=== PATIENT | male | born 1975 | race Caucasian/White ===

== ENCOUNTER 2016-07-27 11:51 | Inpatient (IN) ==
[2016-07-27] MEDS ORDERED: Nitroglycerin 0.4 MG TAB.SUBL SL ONE (12:16)
[2016-07-27] MEDS ORDERED: Aspirin 81 MG TAB.CHEW PO ONE (12:16)
--- NOTE | 2016-07-27 12:28 | Emergency Department Note ---
Disposition Clinical Impression: NSTEMI (non-ST elevated myocardial infarction) Disposition: Admitted As Inpatient Condition: Fair Referrals: NO,PCP [Primary Care Provider] - Forms: ED Satisfaction Letter Time of Disposition: 13:36 Chest Pain HPI - General Chief Complaint: ED Chest Pain Stated Complaint: CP, SOB Time Seen by Provider: 07/27/16 12:06 Source: patient Limitations: no limitations Vital Signs Reviewed: Yes Nursing Notes Reviewed: Yes - History of Present Illness HPI Narrative: Patient is a 40-year-old male who presents to [facility] ED with a chief complaint of chest pain and shortness of breath. Patient states he has had a couple of episodes at this point. States he had one 2 days ago and one today that started approximately 1 hour prior to arrival. States it feels like a pressure and radiates into his left arm. Denies any nausea, vomiting, fever or chills. Patient did have an episode of nausea with vomiting during the first episode a few days ago. No recent cough or cold. Patient has a significant family history that his dad had a heart attack at an early age. Past medical history significant for type 2 diabetes, hyper lipidemia, proteinuria for which he takes a blood pressure medication. Pt complaint: chest pain Onset (ago): hour(s) Duration: intermittent Onset: during rest Pain Location: substernal Severity: moderate Severity scale (1-10): 4 Quality: dull Pain Radiation: LUE Improves with: nothing Worsens with: nothing Associated symptoms: Denies: nausea, vomiting, diaphoresis, dyspnea, fever, cough Treatments prior to arrival chest pain: none - Related Data Allergies Allergy/AdvReac Type Severity Reaction Status Date / Time niacin AdvReac Flushing Verified 07/27/16 12:00 All systems ED: reviewed and negative except as stated. Chest Pain PMH - Past Medical History Medical history: Reports: diabetes, hyperlipidemia, hypertension Psychiatric history: Reports: no psych history - Social History Smoking Status: Never smoker Alcohol use: Reports: none Drug use: Reports: none Physical Exam - General Limitations: no limitations General appearance: alert, obese - Head Head exam: atraumatic, normocephalic, normal inspection - Eye Eye exam: Present: normal appearance, PERRL, EOMI - ENT ENT exam: normal exam, normal oropharynx, mucous membranes moist - Neck Neck exam: Present: normal inspection, full ROM, trachea midline - Chest Chest inspection: Present: normal inspection, symmetric chest wall rise - Respiratory Respiratory exam: Present: normal lung sounds bilaterally - Cardiovascular Cardiovascular exam: Present: regular rate, normal rhythm, normal heart sounds - Abdominal Exam Abdominal exam: Present: soft, Non-Tender. Absent: tenderness, distention, guarding, rebound, rigidity - Extremities Exam Extremities exam: Present: normal inspection, full ROM. Absent: tenderness, pedal edema - Back Exam Back exam: Present: normal inspection, full ROM. Absent: tenderness - Neurological Exam Neurological exam: Present: alert, oriented X3 - Psychiatric Psychiatric exam: Present: normal affect, normal mood - Skin Skin exam: Present: warm Course Course Narrative: Patient seen and examined. Chest pain. Patient does have risk factors. Cardiopulmonary workup initiated. His last stress test was over 2 years ago. I do not feel patient is having a pulmonary embolism. He is able to PERC out. - Reevaluation(s) Reevaluation #1: Patient's troponin elevated at 0.41. All other labs/imaging appear unremarkable. We will admit for NSTEMI. Patient placed on a heparin drip. Patient did receive the aspirin and nitroglycerin already. He is unsure if the nitroglycerin helped at all. I spoke with hospitalist Dr. Stover who has accepted patient for admission. Time: 13:36 Vital Signs Temperature 97.1 F L 07/27/16 11:57 Pulse Rate 84 07/27/16 11:57 Respiratory Rate 18 07/27/16 11:57 Blood Pressure 151/99 07/27/16 11:57 O2 Sat by Pulse Oximetry 97 07/27/16 11:57 Temperature 97.1 F L 07/27/16 11:57 Pulse Rate 84 07/27/16 11:57 Respiratory Rate 18 07/27/16 11:57 Blood Pressure 151/99 07/27/16 11:57 O2 Sat by Pulse Oximetry 97 07/27/16 11:57 Oxygen Delivery Oxygen Delivery Room Air Chest Pain - Medical Records Medical records reviewed: Yes I reviewed the patient's medical records. - Lab Data Lab results reviewed: Yes I reviewed the patient's lab results. Result diagrams: 07/27/16 12:30 07/27/16 12:30 Lab Results 07/27/16 07/27/16 07/27/16 Range/Units 12:30 12:30 12:30 WBC 6.5 (4.3-11.1) K/mcL RBC 5.19 (4.19-5.50) M/mcL Hgb 14.6 (12.9-16.9) g/dL Hct 43.2 (37.5-50.1) % MCV 83.2 (83.0-100.0) fL MCH 28.1 (28.0-33.3) pg MCHC 33.8 (31.6-35.5) g/dL RDW 14.0 (11.5-14.5) % Plt Count 188 (140-400) K/mcL MPV 9.6 (9.4-12.4) fL Immature Gran % 0.5 (0-4) % Seg Neutrophils % 59.0 % Lymphocytes % 25.8 % Monocytes % 12.4 % Eosinophils % 2.0 % Basophils % 0.3 % Neutrophils # 3.9 (1.6-8.9) K/mcL Lymphocytes # 1.7 (0.6-4.6) K/mcL Monocytes # 0.8 (0.0-1.3) K/mcL Eosinophils # 0.1 (0.0-0.6) K/mcL Basophils # 0.0 (0.0-0.2) K/mcL PT (9.4-12.1) Seconds INR APTT (26.0-36.0) Seconds Sodium 138 (136-145) mEq/L Potassium 3.7 (3.5-4.5) mEq/L Chloride 108 (98-109) mEq/L Carbon Dioxide 22 (19-29) mEq/L BUN 14 (8-26) mg/dL Creatinine 0.77 (0.72-1.25) mg/dL Est GFR ( Amer) > 60 (> 60) Est GFR (Non-Af Amer) > 60 (> 60) BUN/Creatinine Ratio 18 (6-26) Glucose 104 H (70-99) mg/dL Calculated Osmolality 287 (280-300) Calcium 8.8 (8.6-10.8) mg/dL Troponin I 0.41 H* (0-0.03) ng/mL 07/27/16 Range/Units 12:30 WBC (4.3-11.1) K/mcL RBC (4.19-5.50) M/mcL Hgb (12.9-16.9) g/dL Hct (37.5-50.1) % MCV (83.0-100.0) fL MCH (28.0-33.3) pg MCHC (31.6-35.5) g/dL RDW (11.5-14.5) % Plt Count (140-400) K/mcL MPV (9.4-12.4) fL Immature Gran % (0-4) % Seg Neutrophils % % Lymphocytes % % Monocytes % % Eosinophils % % Basophils % % Neutrophils # (1.6-8.9) K/mcL Lymphocytes # (0.6-4.6) K/mcL Monocytes # (0.0-1.3) K/mcL Eosinophils # (0.0-0.6) K/mcL Basophils # (0.0-0.2) K/mcL PT 11.3 (9.4-12.1) Seconds INR 1.0 APTT 27.5 (26.0-36.0) Seconds Sodium (136-145) mEq/L Potassium (3.5-4.5) mEq/L Chloride (98-109) mEq/L Carbon Dioxide (19-29) mEq/L BUN (8-26) mg/dL Creatinine (0.72-1.25) mg/dL Est GFR ( Amer) (> 60) Est GFR (Non-Af Amer) (> 60) BUN/Creatinine Ratio (6-26) Glucose (70-99) mg/dL Calculated Osmolality (280-300) Calcium (8.6-10.8) mg/dL Troponin I (0-0.03) ng/mL - Radiology Data Radiology results reviewed: Yes I reviewed the patient's radiology results. - EKG Data EKG attestation: Yes I reviewed and interpreted this EKG. EKG results narrative: EKG done at 1156 shows normal sinus rhythm with a rate of [address] elevation or depression. Inverted T wave in lead 2. Heart Score - Score History: Moderately Suspicious EKG: Non Specific repolarisation Disturbance Age: Less than 45 Risk Factors: 1-2 risk factors Troponin: Greater than 3x normal limit HEART Score Total: 5
[2016-07-27 12:38] LABS: Basophils % 0.3 %; Eosinophils # 0.1 K/mcL (0.0-0.6); Hematocrit 43.2 % (37.5-50.1); Hemoglobin 14.6 g/dL (12.9-16.9); Immature Granulocytes % 0.5 % (0-4); Lymphocytes # 1.7 K/mcL (0.6-4.6); Lymphocytes % 25.8 %; Mean Corpuscular HGB Conc 33.8 g/dL (31.6-35.5); Mean Corpuscular Hemoglobin 28.1 pg (28.0-33.3); Mean Corpuscular Volume 83.2 fL (83.0-100.0); Mean Platelet Volume 9.6 fL (9.4-12.4); Monocytes # 0.8 K/mcL (0.0-1.3); Monocytes % 12.4 %; Neutrophils # 3.9 K/mcL (1.6-8.9); Platelet Count 188 K/mcL (140-400); Red Blood Count 5.19 M/mcL (4.19-5.50)
[2016-07-27 12:48] LABS: BUN/Creatinine Ratio 18 (6-26); Blood Urea Nitrogen 14 mg/dL (8-26); Calcium 8.8 mg/dL (8.6-10.8); Carbon Dioxide 22 mEq/L (19-29); Chloride 108 mEq/L (98-109); Glucose 104 mg/dL (70-99); Osmolality,Calculated 287 (280-300); Potassium 3.7 mEq/L (3.5-4.5); Sodium 138 mEq/L (136-145); eGFR For African Americans > 60 (> 60); eGFR For Non-African Americans > 60 (> 60)
[2016-07-27] MEDS ORDERED: *HR* Heparin 5,000 UNIT/ML VIAL IVP ONE (13:00)
[2016-07-27] MEDS ORDERED: *HR* Heparin 5,000 UNIT/ML VIAL IVP PRN ×2 (13:00)
[2016-07-27 13:21] LABS: Prothrombin Time 11.3 Seconds (9.4-12.1)
[2016-07-27 13:24] LABS: Activated Partial Thrombo Time 27.5 Seconds (26.0-36.0)
--- NOTE | 2016-07-27 13:43 | Emergency Department Note ---
Disposition Clinical Impression: NSTEMI (non-ST elevated myocardial infarction) Disposition: Admitted As Inpatient Condition: Fair Referrals: NO,PCP [Non-Partnered Physician] - Forms: ED Satisfaction Letter General Adult HPI - General Chief complaint: ED Chest Pain Stated complaint: CP, SOB Time Seen by Provider: 07/27/16 12:06 Source: patient Limitations: no limitations - History of Present Illness Pain Scale: 4 - Related Data Allergies Allergy/AdvReac Type Severity Reaction Status Date / Time niacin AdvReac Flushing Verified 07/27/16 12:00 Past Medical History - Past Medical History Medical history: Reports: diabetes, hyperlipidemia, hypertension Psychiatric history: Reports: no psych history - Social History Smoking Status: Never smoker Smokeless Tobacco Status: No Alcohol use: Reports: none Drug use: Reports: none Physical Exam - General Limitations: no limitations General appearance: alert, obese Course - Reevaluation(s) Reevaluation #1: I saw the patient with the resident, Dr. Arias. Patient presented with complaint of chest pain. He is a couple of episodes over the past couple days. Today he was having chest pressure and he felt discomfort going to his left arm as well. He was doing a lot of belching but as he belched symptoms did not get relieved , rather they got worse. This is similar presentation to his dad when his dad had his heart attack. EKG looks okay here. Troponin was elevated however. Patient is symptom-free at this time. He is to be admitted for definitive cardiac evaluation. Time: 13:42 Vital Signs Temperature 97.1 F L 07/27/16 11:57 Pulse Rate 84 07/27/16 11:57 Respiratory Rate 18 07/27/16 11:57 Blood Pressure 151/99 07/27/16 11:57 O2 Sat by Pulse Oximetry 97 07/27/16 11:57 Temperature 97.1 F L 07/27/16 11:57 Pulse Rate 84 07/27/16 11:57 Respiratory Rate 18 07/27/16 11:57 Blood Pressure 151/99 07/27/16 11:57 O2 Sat by Pulse Oximetry 97 07/27/16 11:57 Oxygen Delivery Oxygen Delivery Room Air Medical Decision Making - Lab Data Result diagrams: 07/27/16 12:30 07/27/16 12:30 Lab Results 07/27/16 07/27/16 07/27/16 Range/Units 12:30 12:30 12:30 WBC 6.5 (4.3-11.1) K/mcL RBC 5.19 (4.19-5.50) M/mcL Hgb 14.6 (12.9-16.9) g/dL Hct 43.2 (37.5-50.1) % MCV 83.2 (83.0-100.0) fL MCH 28.1 (28.0-33.3) pg MCHC 33.8 (31.6-35.5) g/dL RDW 14.0 (11.5-14.5) % Plt Count 188 (140-400) K/mcL MPV 9.6 (9.4-12.4) fL Immature Gran % 0.5 (0-4) % Seg Neutrophils % 59.0 % Lymphocytes % 25.8 % Monocytes % 12.4 % Eosinophils % 2.0 % Basophils % 0.3 % Neutrophils # 3.9 (1.6-8.9) K/mcL Lymphocytes # 1.7 (0.6-4.6) K/mcL Monocytes # 0.8 (0.0-1.3) K/mcL Eosinophils # 0.1 (0.0-0.6) K/mcL Basophils # 0.0 (0.0-0.2) K/mcL PT (9.4-12.1) Seconds INR APTT (26.0-36.0) Seconds Sodium 138 (136-145) mEq/L Potassium 3.7 (3.5-4.5) mEq/L Chloride 108 (98-109) mEq/L Carbon Dioxide 22 (19-29) mEq/L BUN 14 (8-26) mg/dL Creatinine 0.77 (0.72-1.25) mg/dL Est GFR ( Amer) > 60 (> 60) Est GFR (Non-Af Amer) > 60 (> 60) BUN/Creatinine Ratio 18 (6-26) Glucose 104 H (70-99) mg/dL Calculated Osmolality 287 (280-300) Calcium 8.8 (8.6-10.8) mg/dL Troponin I 0.41 H* (0-0.03) ng/mL 07/27/16 Range/Units 12:30 WBC (4.3-11.1) K/mcL RBC (4.19-5.50) M/mcL Hgb (12.9-16.9) g/dL Hct (37.5-50.1) % MCV (83.0-100.0) fL MCH (28.0-33.3) pg MCHC (31.6-35.5) g/dL RDW (11.5-14.5) % Plt Count (140-400) K/mcL MPV (9.4-12.4) fL Immature Gran % (0-4) % Seg Neutrophils % % Lymphocytes % % Monocytes % % Eosinophils % % Basophils % % Neutrophils # (1.6-8.9) K/mcL Lymphocytes # (0.6-4.6) K/mcL Monocytes # (0.0-1.3) K/mcL Eosinophils # (0.0-0.6) K/mcL Basophils # (0.0-0.2) K/mcL PT 11.3 (9.4-12.1) Seconds INR 1.0 APTT 27.5 (26.0-36.0) Seconds Sodium (136-145) mEq/L Potassium (3.5-4.5) mEq/L Chloride (98-109) mEq/L Carbon Dioxide (19-29) mEq/L BUN (8-26) mg/dL Creatinine (0.72-1.25) mg/dL Est GFR ( Amer) (> 60) Est GFR (Non-Af Amer) (> 60) BUN/Creatinine Ratio (6-26) Glucose (70-99) mg/dL Calculated Osmolality (280-300) Calcium (8.6-10.8) mg/dL Troponin I (0-0.03) ng/mL Attestation Statement - Attestation Attestation: I, Dr. Velasquez, examined this patient [id number], and my medical decision- making was reviewed with Dr. Arias, Resident Physician. I agree with the documented findings, disposition and treatment plan as described except to the extent set forth below. Please see my progress notes for details.
[2016-07-27] MEDS: Heparin 25,000 UNIT/500 ML D5W 25,000 UNIT/500 ML MLS IVC SCH (14:03)
[2016-07-27] MEDS ORDERED: *HR* Morphine 2 MG/ML SYRINGE IVP PRN (15:36)
[2016-07-27] MEDS ORDERED: Naloxone 0.4 MG/ML INJ IVP PRN (15:36)
[2016-07-27] MEDS ORDERED: Acetaminophen 325 MG TABLET PO PRN (15:36)
[2016-07-27] MEDS ORDERED: Nitroglycerin 0.4 MG TAB.SUBL SL PRN (15:40)
--- NOTE | 2016-07-27 16:34 | Internal Med History&Physical ---
Date of Encounter: 07/27/16 Time of Encounter: 15:15 Assessment and Plan (1) NSTEMI (non-ST elevated myocardial infarction) Current visit: Yes Status: Acute Atypical chest pain with slightly elevated troponin. Start telemetry monitoring and trend troponins. Given his history of diabetes, obesity, hyperlipidemia and strong family history of CAD, consider ACS. Received aspirin and nitroglycerin in the emergency room. Continue aspirin, IV heparin drip and start Plavix. Check lipid profile and start atorvastatin. Cardiology consulted for possible left heart catheterization, will follow-up recommendations. Check 2-D echocardiogram to assess left ventricular ejection fraction and wall motion abnormalities. (2) Diabetes mellitus Current visit: Yes Status: Chronic Check hemoglobin A1c. Accu-Chek blood glucose monitoring with sliding scale insulin as needed. Diabetic diet. Qualifiers: Diabetes mellitus type: type 2 Diabetes mellitus complication status: with unspecified complications Diabetes mellitus half-way insulin use: without half-way use Qualified Code(s): E11.8 - Type 2 diabetes mellitus with unspecified complications (3) Hyperlipidemia Current visit: Yes Status: Chronic Continue statin. Qualifiers: Hyperlipidemia type: unspecified Qualified Code(s): E78.5 - Hyperlipidemia , unspecified Internal Medicine - H&P: HPI Chief complaint: Chest pain Admitted From: Emergency Dept Plans for Post Hospital Care: Home History of present illness: Mr. Grimm is a 40 year old male with history of diabetes, presents with complaints of retrosternal chest pain. Patient describes a pressure-like retrosternal chest pain that started around 11 AM today while he was driving. His pain was moderate to severe in intensity and radiating to his left arm associated with left arm numbness, which remained constant, not associated with diaphoresis, dyspnea or dizziness or syncope. His pain was relieved with nitroglycerin in the emergency room. He had a similar but stabbing chest pain 2 days back while at rest, associated with multiple episodes of nausea and vomiting, which he attributed to viral gastritis. He underwent a stress test about 2-1/2 years ago, which was normal according to him. He quit smoking about 8 years ago. He does have a strong family history of coronary artery disease and ME. Past Med Surg Social Fam HX - Past Medical History Medical history: diabetes, hyperlipidemia Psychiatric history: no psych history - Past Surgical History Surgical History: other (Liposuction, cystoscopy) - Social History Smoking Status: Former smoker Smokeless Tobacco Status: No Alcohol use: none Drug use: none Occupational status: retired Current living situation: Home - Independent Activity Level: Independent ambulation Recent Out of Country Travel Within the Last 8 Weeks: No Exposure or Possible Exposure to Illness During Travel: No - Family History Father Hx Family Cardiac Disorders: Yes (ME) Brother Hx Family Cardiac Disorders: Yes (ME) Internal Medicine - H&P: Meds Garlic 1 mg PO DAILY 07/27/16 [History] Krill/Om-3/Dha/Epa/Phospho/Ast [Krill Oil 1,000 mg Softgel] 1,000 mg PO DAILY [History] Multivitamin [Multi-Day Vitamins] 1 tab PO DAILY 07/27/16 [History] Lenin's Wort 150 mg PO DAILY 07/27/16 [History] Allergies niacin Adverse Reaction (Severe, Verified 07/27/16 13:58) Flushing All Systems PM: A 10-system review of systems was performed and is negative for pertinent findings except as documented above in the HPI. - Constitutional Constitutional: no chills, no fever(s), no night sweats - EENT Eyes: no change in vision, no discharge, no pain, no photophobia Ears: no ear discharge, no ear pain, no tinnitus Nose, mouth and throat: no dysphagia, no nasal discharge, no neck pain, no sore throat - Cardiovascular Cardiovascular ROS IM: chest pain - Respiratory Respiratory: no cough, no dyspnea, no wheezing, no excessive phlegm production - Gastrointestinal Gastrointestinal: no abdominal pain, no diarrhea, no hematemesis, no hematochezia, no melena, no nausea, no vomiting - Musculoskeletal Musculoskeletal ROS IM: no numbness, no tingling - Integumentary Integumentary IM: no rash, no unusual bruising - Neurological Neurological ROS: numbness, no confusion, no convulsions, no focal weakness, no tingling, no tremor(s) - Hematologic/Lymphatic Hematologic/Lymphatic: no easy bruising - Constitutional Vitals: Temp Pulse Resp BP Pulse Ox 97.4 F L 77 16 122/84 96 07/27/16 14:55 07/27/16 14:55 07/27/16 14:55 07/27/16 15:34 07/27/16 14:55 General appearance: Present: A&O X 3, morbidly obese, answers questions appropriately - Head Head exam: Present: atraumatic, normocephalic - Neck Neck exam general surgery: Present: supple, trachea midline. Absent: lymphadenopathy - Respiratory Respiratory exam: Present: CTAB. Absent: accessory muscle use, rales, rhonchi, wheezes - Cardiovascular Cardiovascular exam: Present: RRR, +S1, +S2. Absent: diastolic murmur, gallop, rubs, systolic murmur - GI/Abdominal GI/Abdominal exam: Present: normal bowel sounds, soft (Obese and nontender), no peritoneal signs. Absent: distended, tenderness - Extremities Exam Extremities exam: Present: full ROM, warm, radial pulses palpable and symetrical. Absent: calf tenderness, cyanotic, pedal edema - Neurological Exam Neurological exam: Present: CN II-XII intact, oriented X3, no focal deficits. Absent: pronater drift, facial droop, speech deficit - Skin Skin exam: Present: dry, intact Internal Med - H&P Results - Labs CBC & Chem 7: 07/27/16 12:30 07/27/16 12:30 - EKG Data -: EKG Interpreted by Myself EKG shows normal: sinus rhythm Rate: normal
[2016-07-27] MEDS ORDERED: Acetaminophen IV 1,000 MG/100 ML INFUS..BTL IVPB ONE (21:01)
[2016-07-27] MEDS ORDERED: Melatonin 3 MG TABLET PO SCH (23:45)
[2016-07-28] MEDS: Heparin 25,000 UNIT/500 ML D5W 25,000 UNIT/500 ML MLS IVC SCH (04:43)
[2016-07-28 05:17] LABS: Basophils % 0.5 %; Eosinophils # 0.2 K/mcL (0.0-0.6); Eosinophils % 2.5 %; Hematocrit 42.9 % (37.5-50.1); Hemoglobin 13.8 g/dL (12.9-16.9); Immature Granulocytes % 0.4 % (0-4); Lymphocytes # 2.3 K/mcL (0.6-4.6); Lymphocytes % 29.9 %; Mean Corpuscular HGB Conc 32.2 g/dL (31.6-35.5); Mean Corpuscular Hemoglobin 27.3 pg (28.0-33.3); Mean Corpuscular Volume 84.8 fL (83.0-100.0); Mean Platelet Volume 9.7 fL (9.4-12.4); Monocytes # 0.9 K/mcL (0.0-1.3); Monocytes % 11.1 %; Neutrophils # 4.3 K/mcL (1.6-8.9); Platelet Count 223 K/mcL (140-400); Red Blood Count 5.06 M/mcL (4.19-5.50); Red Cell Distribution Width 14.2 % (11.5-14.5); Segmented Neutrophils % 55.6 %
[2016-07-28 05:40] LABS: BUN/Creatinine Ratio 14 (6-26); Blood Urea Nitrogen 11 mg/dL (8-26); Calcium 8.7 mg/dL (8.6-10.8); Carbon Dioxide 23 mEq/L (19-29); Chloride 106 mEq/L (98-109); Chol/HDL Ratio 5.2 (0-4.9); Cholesterol 135 mg/dL (< 200); Glucose 128 mg/dL (70-99); HDL Cholesterol 26 mg/dL (40-59); LDL Cholesterol,Calculated 76 mg/dL (0-99); Osmolality,Calculated 287 (280-300); Potassium 3.9 mEq/L (3.5-4.5); Sodium 138 mEq/L (136-145); Triglycerides 166 mg/dL (< 150); eGFR For African Americans > 60 (> 60); eGFR For Non-African Americans > 60 (> 60)
--- NOTE | 2016-07-28 07:27 | Cardiology Consult Note ---
<Guicho Alvarado - Last Filed: 07/28/16 09:43> Date of Encounter: 07/28/16 Time of Encounter: 07:45 Assessment and Plan (1) NSTEMI (non-ST elevated myocardial infarction) Current Visit: Yes Status: Acute Per Cardiology: Troponins elevated at 0.47, 0.94, 0.39. Suspect NSTEMI vs GI component. Risk factors for CAD include: diabetes mellitus type 2, hyperlipidemia, obesity, past nicotine abuse, positive family history. Echo pending. On aspirin, Plavix, statin, heparin drip. We'll place cardiac rehabilitation consult. Plan for LHC today. Further recs after echo and LHC. Patient agreeable to proceed. All questions answered. Discussion w patient/family: The assessment and plan as outlined above was discussed with the patient who expressed understanding and agreement. All questions were answered. Thank you for involving us in the care of your patient. Please call with any questions. History of Present Illness Consult date: 07/28/16 Requesting physician: Myah Stover Consult reason: NSTEMI Chief complaint: CP History of present illness: Mr. Grimm is a 40 year old male with a relevant past medical history of diabetes mellitus type 2, hyperlipidemia, obesity, and past history of nicotine abuse. Positive family history CAD-- father [place] in his 60's. Patient reports developed episode few days ago of nausea, vomiting, and diarrhea. Reports terms and developed left-sided sharp stabbing pain with left arm pain and numbness. He reports has had cough and diarrhea as well. He reports driving to work yesterday experienced belching and epigastric discomfort which eventually led to chest heaviness and left arm pain and tingling again. He reports prior to these episodes has not been having chest pain with exertion or dyspnea on exertion. Denies any increasing fatigue. Reports negative stress test 2 plus years ago at [facility]. Past Med Surg Social Fam HX - Past Medical History Attestation: Yes The following information was validated with the patient. Source: patient, old records reviewed Medical history: diabetes, hyperlipidemia Psychiatric history: no psych history - Past Surgical History Surgical History: other (Liposuction, cystoscopy) - Social History Smoking Status: Former smoker Smokeless Tobacco Status: No Alcohol use: none Drug use: none - Family History Father Hx Family Cardiac Disorders: Yes (CO) Brother Hx Family Cardiac Disorders: Yes (CO) Medications and Allergies Atorvastatin [Lipitor] 40 mg PO DAILY 07/27/16 [History] Garlic 1 mg PO DAILY 07/27/16 [History] Glimepiride [Amaryl] 2 mg PO DAILY 07/27/16 [History] Krill/Om-3/Dha/Epa/Phospho/Ast [Krill Oil 1,000 mg Softgel] 1,000 mg PO DAILY [History] Lisinopril [Zestril] 20 mg PO DAILY 07/27/16 [History] Multivitamin [Multi-Day Vitamins] 1 tab PO DAILY 07/27/16 [History] Sitagliptin Phos/Metformin HCl [Janumet 50-1,000 mg Tablet] 1 tab PO BID [History] Glouster's Wort 150 mg PO DAILY 07/27/16 [History] Allergies niacin Adverse Reaction (Severe, Verified 07/27/16 13:58) Flushing All Systems Review: A 10-system review of systems was performed and is negative for pertinent findings except as documented above in the HPI. - Cardiovascular Cardiovascular: as per HPI, chest pain at rest, radiating jaw, neck or arm pain - Gastrointestinal Gastrointestinal: diarrhea, nausea, other (epigastric pain, vomiting) Physical Examination Vital Signs, Last 4 Hours Temp Pulse Resp BP Pulse Ox 07/28/16 07:04 97.8 F 77 18 102/68 97 07/28/16 03:31 97.5 F L 71 18 100/65 95 General: Conversant, No Apparent Distress HEENT: Atraumatic, Normocephaly, Mucus Membranes Moist Neck: No JVD, Normal carotid pulses Cardiac: Reg Rate and Rhythm, Normal S1 and S2, No Murmur Lungs: Normal Breath Sounds, No Wheeze, Rales, Rhonchi Neuro: Alert and responsive, No focal deficits noted Abdomen: Soft, Non-Tender, Other (obese) Skin: No rashes noted on visualized skin Musculoskeletal: No Chest Wall Tenderness Extremities: No Edema, Normal Pulses Results 07/28/16 04:32 07/28/16 04:32 Lab Results Laboratory Tests 07/27/16 07/27/16 07/27/16 12:30 12:30 20:12 INR 1.0 Troponin I 0.41 H* 0.94 H* LDL Cholesterol, Calc 07/28/16 07/28/16 04:32 04:32 INR Troponin I 0.39 H* LDL Cholesterol, Calc 76 ITS Impressions Chest X-Ray 07/27/16 12:16 IMPRESSION: Low lung volumes with right basilar atelectasis D/ / Samuel Martinez MD / Samuel Martinez MD Interpreting Provider: Samuel Martinez MD Active Medications Acetaminophen (Tylenol) 650 mg PO Q6HR PRN PRN Reason: Mild Pain (1-3) Stop: 01/26/17 15:37 Aspirin (Aspirin) 81 mg PO DAILY MEE Stop: 01/27/17 09:01 Atorvastatin Calcium (Lipitor) 40 mg PO HS MEE Stop: 01/26/17 21:01 Last Admin: 07/27/16 20:01 Dose: Not Given Clopidogrel Bisulfate (Plavix) 75 mg PO DAILY [facility] Stop: 01/27/17 09:01 Heparin Sodium (Porcine) (Heparin) 4,000 unit IVP Q6HR PRN PRN Reason: SEE COMMENTS Stop: 01/26/17 13:01 Heparin Sodium (Porcine) (Heparin) 2,000 unit IVP Q6H PRN PRN Reason: SEE COMMENTS Stop: 01/26/17 13:01 Heparin Sodium/Dextrose (Heparin 25,000 Unit/500 Ml D5w) 25,000 unit in 500 mls @ 19.758 mls/hr IVC .Q24H MEE; 6.6 UNIT/KG/HR PRN Reason: Protocol Stop: 01/26/17 13:01 Last Titration: 07/28/16 05:26 Dose: 11.99 unit/kg/hr, 35.924 mls/hr Melatonin (Melatonin) 6 mg PO HS MEE Stop: 01/26/17 23:46 Last Admin: 07/28/16 00:05 Dose: 6 mg Morphine Sulfate (Morphine Sulfate) 2 mg IVP Q4HR PRN PRN Reason: Severe Pain (7-10) Stop: 01/26/17 15:37 Naloxone HCl (Narcan) 0.4 mg IVP Q2MIN PRN PRN Reason: Opioid Reversal Stop: 01/26/17 15:37 Nitroglycerin (Nitroglycerin) 0.4 mg SL Q5MIN PRN PRN Reason: Chest Pain Stop: 01/26/17 15:41 Omeprazole (Prilosec) 20 mg PO DAILY@0630 MEE PRN Reason: Protocol Stop: 01/27/17 06:31 Last Admin: 07/28/16 05:35 Dose: Not Given - Imaging and Cardiology Chest Xray: report reviewed Echo: pending Cardiac cath: pending - EKG Interpretation EKG results cardiology: personally reviewed, normal ECG, sinus rhythm Consult Discharge Plan - Plan Referrals: Ritu Pedraza [employer]ER [Primary Care Provider] - 08/15/16 10:45 am (Pt to follow -up with Ritu Pedraza CNP for hospital admission. If patient feels he needs to be seen sooner, he is to call the office and see if they can get him in sooner than the date given. ) <Gayathri Barkley - Last Filed: 07/28/16 14:45> Assessment and Plan Discussion w patient/family: The assessment and plan as outlined above was discussed with the patient and/or family members who expressed understanding and agreement. All questions were answered. Thank you for involving us in the care of your patient. Please call with any questions. History of Present Illness History of present illness: Mr. Grimm is a 40 year old male All Systems Review: A 10-system review of systems was performed and is negative for pertinent findings except as documented above in the HPI. Results 07/28/16 04:32 07/28/16 04:32 Lab Results 07/27/16 07/27/16 07/28/16 20:12 20:12 04:32 WBC Hgb Hct Plt Count APTT 60.0 H D Sodium Potassium Chloride Carbon Dioxide BUN Creatinine Glucose Calcium Troponin I 0.94 H* 0.39 H* 07/28/16 07/28/16 07/28/16 04:32 04:32 04:32 WBC 7.8 Hgb 13.8 Hct 42.9 Plt Count 223 APTT 62.3 H Sodium 138 Potassium 3.9 Chloride 106 Carbon Dioxide 23 BUN 11 Creatinine 0.79 Glucose 128 H Calcium 8.7 Troponin I - Attending Attestation I examined this patient and my medical decision-making was reviewed with the RESIDENCY PROGRAM COORDINATOR/PA/Advanced Practice Nurse/Resident Physician. I agree with the documented findings, disposition and treatment plan. Mr. Grimm was seen and evaluated prior to cath. His symptoms began initially with a viral like illness. He then developed chest pain yesterday and now has an elevated troponin that was consistent with NSTEMI. He underwent LHC which demonstrated normal findings and nothing to explain the troponin elevation. Echo demonstrates normal LV and RV function. No further testing is warranted from a cardiac perspective. We will sign off. Please call with questions.
[2016-07-28] MEDS ORDERED: Aspirin 81 MG TAB.CHEW PO SCH (09:00)
[2016-07-28] MEDS ORDERED: 0.9 % Sodium Chloride 1,000 ML ONE ×2 (09:56→12:32)
[2016-07-28] MEDS ORDERED: Heparin 1,000 UNITS/500 mL NS 500 ML ONE (09:56)
[2016-07-28] MEDS ORDERED: *HR* Heparin 10,000 UNIT/10 ML VIAL ONE (09:56)
[2016-07-28] MEDS ORDERED: Nitroglycerin 1,000 MCG/10 ML VIAL IV ONE (10:03)
--- NOTE | 2016-07-28 10:31 | ECHO - Doppler Report ---
Echocardiogram Name: Oswaldo Grimm Date of Study: 07/28/2016 Date: 1975 Ht: 67.0 in Medical Record#: [id number] Age: 40 Wt: 327.0 lb Gender: Male BSA: 2.49 Order #: [id number] Location: [facility] Room #: 2A55 Reading Physician: Ryan Severino DO, YORDAN, CHANEL APODACA Doorperson: DARLIN PanT Ordering Physician: Angie Stover MD Primary Physician: Ritu Pedraza CNP Indications: Chest pain, Elevated troponin Impressions: LVEF 60-65%. Normal LV chamber size, wall thickness and function. Normal right ventricular structure and function. Unable to estimate RVSP due to lack of TR jet. No significant valvular dysfunction. Left Ventricular Wall Motion: Rest Echo Findings All wall segments showed normal motion. Findings: Study Quality * Technically adequate exam. ECG Findings * Normal sinus rhythm. Left Ventricle * LVEF 60-65%. * Normal LV chamber size, wall thickness and function. Right Ventricle * Normal right ventricular structure and function. Right Atrium * Normal right atrial size. Interatrial Septum * Interatrial septum not well evaluated. Aortic Valve * Trileaflet aortic valve with normal function. * No aortic regurgitation. * No aortic stenosis. Mitral Valve * Normal mitral valve structure and function. * No mitral regurgitation. * No mitral stenosis. Tricuspid Valve * Normal tricuspid valve structure and function. * No tricuspid regurgitation. * Unable to estimate RVSP due to lack of TR jet. Pulmonic Valve * Pulmonic valve not well visualized. * No pulmonic regurgitation. Aorta * Normally sized aortic root. Pericardium * The pericardium appears normal. IVC * Normal IVC dimensions and inspiratory collapse. Pulmonary Artery * Normal visualized portions of the main pulmonary artery. Left Atrium * Mildly dilated left atrium. History Diabetes Hypercholesteremia Family History of CAD Measurements: BP: 100/ 65 2D Normal Values RVIDd: 2.80 cm <2.7 cm IVSd: 1.10 cm 0.6 - 1.0 cm LVIDd: 5.40 cm 3.7 - 5.6 cm LVPWd: 1.10 cm 0.6 - 1.1 cm LVIDs: 4.10 cm 1.5 - 3.6 cm AO: 2.90 cm < 4.0 cm LA: 3.70 cm 2.0 - 4.0cm %FS: 24.10 cm >25 % LA volume: 34 Mitral Valve Peak E:.81 m/sec Peak A:.66 m/sec E/A Ratio:1.2 Peak E' Lat Ming:11.7 cm/s Peak E' Med Ming:10.3 cm/s E/E' Lat Ratio:7 E/E' Med Ratio:7.9 Updated by Ryan Severino DO, FACC, CHANEL APODACA on 07/28/2016 10:22:26 AM electronically signed on 07/28/2016 10:25:25 AM with status of Final Wall Motion Crowley: 1=Normal, 2=Hypokinesis, 3=Akinesis, 4=Dyskinesis, 5=Aneurysmal, 6=Hyperkinetic, X=Not Visualized (Blank)=Missing
--- NOTE | 2016-07-28 10:38 | Pre-Sedation Evaluation ---
Pre-sedation evaluation - Pre-sedation checklist Date of procedure: 07/28/16 Procedure: [facility] Recent Vitals: Last Vital Signs Temp 97.8 F 07/28/16 07:04 Pulse 77 07/28/16 07:04 Resp 18 07/28/16 07:04 BP 102/68 07/28/16 07:04 Pulse Ox 97 07/28/16 07:04 H&P (including ROS) documented in medical record: Yes Previous reaction to sedatives/anesthetics: No Dietary Status: NPO after Midnight Airway Assessment: Patient can open mouth completely, TMJ function normal, Micrognathia (under-bite, receding chin) absent, Neck with adequate range of motion Dentition: No loose teeth or bridges Possible difficult airway: Yes If Yes;: Morbid obesity ASA Classification *see protocol: CLASS II-Mild systemic disease Plan of Care: Pt appropriate candidate for procedure/moderate/conscious sedation , Risks/benefits of procedure/sedation discussed w/ patient/family
[2016-07-28] MEDS ORDERED: *HR* Midazolam HCl 2 MG/2 ML VIAL ONE ×2 (12:31→13:15)
[2016-07-28] MEDS ORDERED: Verapamil 5 MG/2 ML VIAL ONE (12:31)
[2016-07-28] MEDS ORDERED: *HR* FentaNYL (PF) 100 MCG/2 ML VIAL ONE (12:31)
--- NOTE | 2016-07-28 13:45 | Invasive Diagnostic Lab Proc ---
Name: Oswaldo Grimm Date of Study: 07/28/2016 Date: 1975 Ht: 66.9in Medical Record#: [id number] Age: 40 Wt: 328.49lb Gender: Male BSA: 2.49 Order #: [id number] BMI: 51.56 Physicians Procedure Physician: Edna Navarrete MD, [facility] Referring MD: Referring MD: Staff Name Position Time In Lillie Barajas RT Scrub 12:39 PM Nancy Granados RN Manager Floor 12:40 PM Emily Pop RN Nurse 12:40 PM [facility], Key RT (R) Monitor 12:40 PM Indications Indication Non-Stemi Procedures Performed Procedure CORONARY ARTERY ANGIO S\\T\\I Pre-Procedure Checklist Informed consent is complete signed and on chart. H\\T\\P is on chart. ID band is on and ID verified with patient. Patient NPO for procedure The procedure was described for the patient and questions were answered. Blood Pressure: 102/68 ECG is on chart. Rhythm: NSR Plan of Care Patient will tolerate the procedure without complications. Adequate level of comfort will be maintained. Hemodynamics will remain stable Patient will recover from procedure without complications. Respiratory function will be maintained. Cardiac rhythm will remain stable. Patient temperature will be maintained. Patient and/or family have verbalized understanding of the procedure. Patient Education Chief Complaint/Reason for Test: Cardiac Cath Developmental Category: Adult (18-64 years) Developmentally Appropriate for Age: Yes Learning Barriers: None Education Needs: Procedure Education Method: Verbal Information Taught: Cardiac Cath Educational Evaluation: Able to repeat information Intravenous Access Time IV Size Location DC'd Fluid/Drip Rate Units RN 09:50 AM 18g 1 07/26" Patent On Arrival Rt Antecubital 0.9NaCl 25 ml/hr Nancy Granados RN Allergies niacin Vital Signs Time BP (mmHg) HR (bpm) O2 Sat. RR (bpm) LOC 09:51 AM 102 / 68 77 97 % 18 12:49 PM / % 4 = Oriented but drowsy 12:49 PM / % 4 = Oriented but drowsy 12:47 PM 136 / 77 70 97 % 25 12:52 PM 127 / 74 80 94 % 13 12:57 PM 125 / 73 83 95 % 19 01:02 PM 120 / 68 82 94 % 21 01:07 PM 121 / 70 80 96 % 22 01:12 PM 120 / 67 80 96 % 23 01:17 PM 125 / 74 83 95 % 19 01:22 PM 116 / 63 87 95 % 12 01:27 PM 118 / 67 85 95 % 14 01:04 PM / % 4 = Oriented but drowsy 01:23 PM / % 4 = Oriented but drowsy Procedural Medications Time Medication Dose Units Method Given By 12:48 PM Oxygen 2 L/min nasal cannula Nancy Granados RN 12:49 PM Versed 2 mg Intravenous DarwinNancy norton RN 12:49 PM Fentanyl 50 mcg Intravenous DarwinNancy norton RN 12:55 PM Lidocaine 2% 0.5 ml Subcutaneous Edna Navarrete MD, [facility] 12:56 PM Nitroglycerin 200 mcg Verapamil 2.5 mg Intraarterial Edna Navarrete MD, [facility] 12:59 PM Oxygen 4 L/min nasal cannula Nancy Granados RN 01:02 PM 01:12 PM Benadryl 25 mg Intravenous DarwinNancy norton RN 01:14 PM Fentanyl 25 mcg Intravenous VanceboroNancy norton RN 01:15 PM Versed 1 mg Intravenous [place]ance[place]Nancy norton RN 01:16 PM Nitroglycerin 200 mcg Intracoronary Edna Navarrete MD, [facility] ASA Classification: CLASS II- Mild systemic disease (i.e. well-controlled diabetes, hypertension, asthma, cigarette smoking) Darrion Score Preprocedure Postprocedure Activity 2- Moves 4 extremities sustained head lift Activity 2- Moves 4 extremities sustained head lift Circulation 2- SBP +/= 20 points of pre-anesthetic level Circulation 2- SBP +/= 20 points of pre-anesthetic level Consciousness 2- Awake and alert oriented x 3 Consciousness 2- Awake and alert oriented x 3 O2 Saturation 2- Able to maintain O2 satruation of 92% on room air O2 Saturation 2- Able to maintain O2 satruation of 92% on room air Respiratory 2- Able to deep breathe and cough well Respiratory 2- Able to deep breathe and cough well Total Score 10 Total Score 10 Contrast Agent: Isovue Diagnostic Contrast: 172 ml Total Contrast: 172 ml Fluoro Dose: 2202 mGy Activated Clotting Time Time Seconds to Clot 01:02 PM 150 Procedure Log Time Note Enter By 12:25 PM CathStat 12:39 PM Pt arrived to clinical laboratory aides teacher 2 at 12:39 [email or web address] 12:39 PM Physician arrived 12:39 [email or web address] 12:39 PM Meet and greet completed [email or web address] 12:39 PM Sign in performed according to hospital policy. [email or web address] 12:39 PM Procedure start 12:39 kk 12:39 PM Lillie Barajas RT Position: Scrub Time in: 12:39 [email or web address] 12:40 PM Nancy Granados RN Position: Manager Floor Time in: 12:40 [email or web address] 12:40 PM Emily Pop RN Position: Nurse Time in: 12:40 [email or web address] 12:40 PM Key Jacobson RT (R) Position: Monitor Time in: 12:40 [email or web address] 12:40 PM Patient charges- Angio tray pack, Navilyst 3mm J, Pulse Oximetry and ACIST tubing and transducer [email or web address] 12:40 PM Case Delayed No [email or web address] 12:44 PM Recorded ECG: HR=91 Condition=Condition 1 12:44 PM Vitals capture started with the following parameters, Patient=Adult, Interval=5 min, Initial Fxnateot=764 mmHg, Deflation Rate=5 mmHg, Cuff placed on Left Arm 12:45 PM Vitals capture stopped. 12:47 PM Vitals capture started with the following parameters, Patient=Adult, Interval=5 min, Initial Sphugpvh=195 mmHg, Deflation Rate=5 mmHg, Cuff placed on Left Arm 12:47 PM [ Start or Stop Vital ] 12:47 PM HR=70 bpm, KXUF=812/77 mmhg, SpO2=97.0 %, Resp=25 B/min 12:48 PM Hair removed from procedure site in procedure lab using clippers. Right wrist and right groin prepped with Chloraprep by dawit rowe rt then patient draped. Skin intact. tsites 12:48 PM Time: 12:48 Oxygen on at 2 L/min per nasal cannula by Nancy Granados RN tsites 12:49 PM Time: 12:49 Versed 2 mg Intravenous Given by Nancy Granados RN tsites 12:49 PM Time: 12:49 Fentanyl 50 mcg Intravenous Given by Nancy Granados RN tsites 12:49 PM Time: 12:49 Patient comfortable and pain free: Yes tsites 12:49 PM Time: 12:49LOC: 4 = Oriented but drowsy tsites 12:49 PM Clinical Presentation: Non-STEMI tsites 12:52 PM HR=80 bpm, ZAUA=285/74 mmhg, SpO2=94.0 %, Resp=13 B/min 12:53 PM Time out performed according to hospital policy tsites 12:54 PM Pressure channel 2 zeroed. 12:55 PM Time: 12:55 0.5 ml Lidocaine 2% to right radial Subcutaneous Given by Edna Navarrete MD, [facility] tsites 12:56 PM Access obtained by percutaneous puncture. 5Fr 10cm Terumo Glidesheath sheath placed in right Radial artery. [id number] tsites 12:56 PM Time: 12:56 Patient given 200 mcg Nitroglycerin, and 2.5 mg Verapamil Intraarterial by Edna Navarrete MD, [facility] tsites 12:57 PM 5Fr FR5 catheter inserted over the wire [id number] tsites 12:57 PM HR=83 bpm, AQNX=290/73 mmhg, SpO2=95.0 %, Resp=19 B/min 12:59 PM 0.035 260cm Navilyst 3mmJ wire [id number] tsites 12:59 PM Wire removed tsites 12:59 PM Time: 12:59 Oxygen on at 4 L/min per nasal cannula by Nancy Granados RN tsites 01:00 PM ACT drawn tsites 01:00 PM Recorded Pressure: Ao, HR=82, Condition=Condition 1 (Aorta) Ao 103/84/95 01:01 PM RCA angiography performed in multiple views. tsites 01:01 PM wire reinserted catheter removed tsites 01:02 PM At 13:02 the ACT was 150 seconds. tsites 01:02 PM Time: 13:02 Heparin 500 units Intravenous Given by Nancy Granados RN tsites 01:02 PM 5Fr FL3.5 catheter inserted over the wire [id number] tsites 01:02 PM HR=82 bpm, PRSX=934/68 mmhg, SpO2=94.0 %, Resp=21 B/min 01:03 PM Wire removed tsites 01:04 PM Time: 12:49 Patient comfortable and pain free: Yes tsites 01:04 PM Time: 12:49LOC: 4 = Oriented but drowsy tsites 01:05 PM wire reinserted catheter removed tsites 01:05 PM 5Fr TIG catheter inserted over the wire [facility] tsites 01:06 PM Wire removed tsites 01:07 PM HR=80 bpm, DQYZ=295/70 mmhg, SpO2=96.0 %, Resp=22 B/min 01:08 PM Recorded Pressure: Ao, HR=81, Condition=Condition 1 (Aorta) Ao 105/76/91 01:09 PM wire reinserted catheter removed tsites 01:09 PM Catheter removed tsites 01:10 PM 6Fr EBU 3.25 Medtronic guide catheter was used to cannulate the PCI vessel successfully. reused? No tsites 01:12 PM Wire removed tsites 01:12 PM HR=80 bpm, NHKH=850/67 mmhg, SpO2=96.0 %, Resp=23 B/min 01:12 PM Time: 13:12 Benadryl 25 mg Intravenous Given by Nancy Granados RN tsites 01:13 PM wire reinserted catheter removed tsites 01:13 PM 5Fr FL 4 catheter inserted over the wire [facility] tsites 01:13 PM Wire removed tsites 01:15 PM Time: 13:14 Fentanyl 25 mcg Intravenous Given by Nancy Granados RN tsites :15 PM Time: 13:15 Versed 1 mg Intravenous Given by Nancy Granados RN tsites 01:16 PM Time: 13:16 Nitroglycerin 200 mcg Intracoronary Given by Edna Navarrete MD, [facility] tsites 01:17 PM HR=83 bpm, QHIK=214/74 mmhg, SpO2=95.0 %, Resp=19 B/min 01:19 PM Catheter removed tsites 01:19 PM Tig Catheter re-inserted. tsites 01:22 PM HR=87 bpm, DKEM=582/63 mmhg, SpO2=95 %, Resp=12 B/min 01:23 PM Time: 13:04LOC: 4 = Oriented but drowsy tsites :23 PM Time: 13:04 Patient comfortable and pain free: Yes tsites 01:25 PM LCA angiography performed in multiple views. tsites 01:26 PM Recorded Pressure: Ao, HR=83, Condition=Condition 1 (Aorta) Ao 99/82/91 01:27 PM HR=85 bpm, UARZ=245/67 mmhg, SpO2=95.0 %, Resp=14 B/min 01:30 PM Catheter removed tsites 01:30 PM Procedure completed at 13:30 tsites 01:30 PM Sign out completed: Radiation Dose 2202 mGy Fluoro Time: 16.1 Isovue 370 - 500ml contrast 172 ml given by Edna Navarrete MD, [facility]. Complications: NoneConfirmed administered medications: Yes tsites 01:30 PM Isovue 370 - 500ml,1 Bottle(s) used. tsites 01:30 PM Arterial sheath pulled, Vasc Band closure device used and was Successful S/N. tsites 01:31 PM Post ECG NSR tsites 01:31 PM Post Blood Pressure 118/67 tsites 01:31 PM 13:31 Post Pulses Rt Radial 1+ tsites 01:32 PM Information taught Cardiac Cath and Vasc Band tsites 01:32 PM Education needs Procedure, Plan of Care, and Responsibilities of Patient in Care tsites 01:32 PM 15 ml air in Vasc Band. tsites 01:33 PM Site status No bleeding/hematoma - Rt Wrist as reported by Lillie Barajas RT at 13:33 tsites 01:33 PM Family placed in consult room. tsites 01:33 PM Delay to floor No tsites 01:33 PM Patient out of room: 13:33 tsites 01:34 PM Complications: None tsites 01:38 PM Family placed in consult room. tsites 01:38 PM Time: 13:23 Patient comfortable and pain free: Yes tsites 01:38 PM Time: 13:23LOC: 4 = Oriented but drowsy tsites 01:39 PM Report given to beth NELSON Pt taken to 2A Room #55. 13:39 tsites Complications Complication None None Hemodynamics Pressures Site Systolic/A Wave Diastolic/V Wave Mean AO 103 84 95 AO 105 76 91 AO 99 82 91 Post Procedure Information Blood Pressure: 118/67 mmHg Rhythm: NSR Post procedural instructions were given Closure Device Time Device Success/Fail 07/28/2016 1:39:00 PM Mechanical Compression Successful Site Checks Time Location Status Staff Sheath In? Note 01:33 PM Rt Wrist No bleeding/hematoma Lillie Barajas RT Pulses Time Site Pre-Procedure Post-Procedure Note 07/28/2016 9:51:00 AM Bilateral DP 2+ 07/28/2016 9:51:00 AM Bilateral radial 2+ 1:31:00 PM Rt Radial 1+ Updated by Key Jacobson RT (R) on 07/28/2016 1:41:14 PM Key Jacobson RT electronically signed on 07/28/2016 1:42:17 PM with status of Final
--- NOTE | 2016-07-28 16:26 | Electrocardiograph Report ---
[facility] Test Date: 2016-07-27 Pat Name: Oswaldo Grimm Department: 105 Room: 2A55 Gender: M Healthcare Technician: MSC : 1975 Requested By: Kimberley Arias Order Number: [id number] Reading MD: Ryan Severino DO Measurements Intervals [place] Rate: 84 P: -8 VT: 178 QRS: -6 QRSD: 94 T: -1 QT: 330 QTc: 372 Interpretive Statements Sinus rhythm Electronically Signed On 07-28-16 16:24:40 EST by Ryan Severino DO
[2016-07-28 16:36] VITALS: BP 138/83
--- NOTE | 2016-07-28 16:47 | Discharge Summary ---
Date of Encounter: 07/28/16 Time of Encounter: 09:00 - Discharge Medications Prescriptions: Aspirin 81 mg PO DAILY #30 tab.chew Omeprazole [PriLOSEC] 20 mg PO DAILY@30 #30 capsule. Home Medications: Atorvastatin [Lipitor] 40 mg PO DAILY 07/27/16 [History] Garlic 1 mg PO DAILY 07/27/16 [History] Glimepiride [Amaryl] 2 mg PO DAILY 07/27/16 [History] Krill/Om-3/Dha/Epa/Phospho/Ast [Krill Oil 1,000 mg Softgel] 1,000 mg PO DAILY [History] Lisinopril [Zestril] 20 mg PO DAILY 07/27/16 [History] Multivitamin [Multi-Day Vitamins] 1 tab PO DAILY 07/27/16 [History] Sitagliptin Phos/Metformin HCl [Janumet 50-1,000 mg Tablet] 1 tab PO BID [History] Aspirin 81 mg PO DAILY #30 tab.chew 07/28/16 [Rx] Morphine [Morphine Sulfate] 2 mg IVP Q4HR PRN #0 syringe 07/28/16 [Rx] Naloxone [Narcan] 0.4 mg IVP Q2MIN PRN #0 inj 07/28/16 [Rx] Omeprazole [PriLOSEC] 20 mg PO DAILY@0630 #30 capsule. 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 07/28/16 09:41 Ordered EV echocardiogram Routine Y 07/28/16 15:40 Completed Date of admission: 07/27/16 15:36 Primary care physician: Shanda Griffith Consults: 07/27/16 15:40 Consult to Cardiology [CONS] Routine Comment: Consulting Provider: Marilia Wilks Reason for Consult: NSTEMI Call Completed: Yes 07/28/16 07:29 Consult to Cardiac Rehabilitation-Phase1 [CONS] Routine Comment: Reason for Consult: NSTEMI Call Completed: No Discharging clinician: Chinedu Cevallos Anticipated date of discharge: 01/06/17 - Patient Status Disposition: Home, Self-Care Condition: Fair Overall status at discharge: patient is progressing back to baseline - Discharge Instructions Follow Up With: Ritu Pedraza CNP [Primary Care Provider] - 08/15/16 10:45 am (Pt to follow -up with Ritu Pedraza CNP for hospital admission. If patient feels he needs to be seen sooner, he is to call the office and see if they can get him in sooner than the date given. ) - Diet and Activity Activity: increase activity as tolerated Diet: diabetic diet, low fat, low cholesterol Hospital course: Mr. Grimm is a 40 year old male with PMH significant for morbid obesity DM/ HTN presented with nausea and painin left arm cardiac markers were mildly elevated at 0.4 and 0.9 Pt underwetn a [facility] that was unremarkable normal coronary arteries, was advised on liestyle changes loose weight and uit cigarette smoking condition at the time of discharge is stable - Time Spent with Patient Total time spent providing and/or coordinating discharge services: Greater than 30 minutes - Constitutional Vitals: Temp Pulse Resp BP Pulse Ox 97.8 F 94 84 138/83 95 07/28/16 07:04 07/28/16 16:33 07/28/16 16:33 07/28/16 16:33 07/28/16 15:47 General appearance: Present: A&O X 3, morbidly obese, answers questions appropriately - Respiratory Respiratory exam: Present: decreased breath sounds - Cardiovascular Cardiovascular exam: Present: RRR, +S1, +S2 - GI/Abdominal GI/Abdominal exam: Present: normal bowel sounds - Extremities Exam Extremities exam: Present: normal capillary refill, warm, radial pulses palpable and symetrical - Neurological Exam Neurological exam: Present: oriented X3
--- NOTE | 2016-07-28 17:06 | Invasive Diagnostic Lab ---
Name: Oswaldo Grimm Date of Study: 07/28/2016 Date: 1975 Ht: 170.0 cm /66.9 in Medical Record#: [id number] Age: 40 Wt: 149. kg / 328.49 lb Account/Order#: [id number] Gender: Male BSA: 2.49 Order #: [id number] Fluoro Dose: 2202 mGy BMI: 51.56 Procedure Physician: Edna Navarrete MD, FACC Referring MD: Referring MD: Procedures Performed: CORONARY ANGIOGRAPHY Indications: Non-Stemi Impressions: Coronary arteries are angiographically normal. Recommendations: Optimal medical therapy of patient's disease. Aggressive risk factor modification. History/Risk Factors: obesity former smoker Diabetes Dyslipidemia Family History of CAD Procedure Access obtained in the right Radial artery by percutaneous puncture Complications: None, None Contrast: Isovue 172ml Closure Device: Mechanical Compression Hemodynamics: Pressures Site Systolic/ A Wave Diastolic/ V Wave End Diastolic/ Mean HR AO 103 84 95 82 AO 105 76 91 81 AO 99 82 91 83 Coronary Dominance: right Lesion Findings/Interventions * Left Main Coronary Artery The LMCA is angiographically free of disease. * Left Anterior Descending The LAD is angiographically free of disease. The 1st Diagonal is angiographically free of disease. * Circumflex The Circumflex is angiographically free of disease. The 1st Marginal is angiographically free of disease. * Right Coronary Artery The RCA is angiographically free of disease. The Right PDA is angiographically free of disease. Updated by Key Jacobson RT (R) on 07/28/2016 1:41:45 PM Edna Navarrete MD, FACC electronically signed on 07/28/2016 5:01:07 PM with status of Final
== END 2016-07-28 18:54 | disposition home or self-care (01) | DRG 281 ==
LOC: EMEROO 11:51 → 2ANU 11:51
PROVIDERS: ADMIT Internal Medicine; ATTEND Internal Medicine Endocrinology, Diabetes & Metabolism